=== PATIENT | female | born 1955 ===

== ENCOUNTER 2017-01-21 09:24 | Emergency (ER) | payer OTHER ==
[2017-01-21 09:31] VITALS: TEMP 97.9; BMI 27.7
--- NOTE | 2017-01-21 10:13 | ED PDOC ---
Lower Extremity Pain/Injury Time Seen by Provider: 01/21/17 09:43 Chief Complaint (Nursing): Lower Extremity Problem/Injury Chief Complaint (Provider): right knee pain History Per: Patient History/Exam Limitations: no limitations Onset/Duration Of Symptoms: Days Current Symptoms Are (Timing): Still Present Severity: Moderate Additional History Per: Patient Additional Complaint(s): The pt is a 61yo female with no pertinent PMHx, presents to the ED for evaluation of right knee pain present for the past week. 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 She denies any recent injuries or trauma to her knee. Pt reports taking Ibuprofen for the pain with some relief. She currently offers no additional medical complaints. - Knee Currently Unable To: Bear Weight Alleviating Factor(s): Elevation Past Medical History Reviewed: Historical Data, Nursing Documentation, Vital Signs Vital Signs: Last Vital Signs Temp 97.9 F 01/21/17 09:30 Pulse 60 01/21/17 09:30 Resp BP 118/61 01/21/17 09:30 Pulse Ox 99 01/21/17 09:30 - Medical History PMH: Hypothyroidism - Surgical History Surgical History: No Surg Hx - Family History Family History: States: No Known Family Hx - Living Arrangements Living Arrangements: With Family - Social History Current smoker - smoking cessation education provided: No Alcohol: None Drugs: Denies - Home Medications Home Medications: Ambulatory Orders Medication Instructions Recorded traMADol [Ultram] 50 - 100 mg PO Q6H #20 tab 06/30/14 Diclofenac Sodium [Voltaren] 1 gm TP TID #100 gel..gram. 01/21/17 Naproxen 500 mg PO BID #20 tab 01/21/17 - Allergies Allergies/Adverse Reactions: Allergies Allergy/AdvReac Type Severity Reaction Status Date / Time No Known Allergies Allergy Verified 01/21/17 09:50 Review of Systems ROS Statement: Except As Marked, All Systems Reviewed And Found Negative Musculoskeletal: Positive for: Leg Pain (right knee pain) Physical Exam - Reviewed Nursing Documentation Reviewed: Yes Vital Signs Reviewed: Yes - Physical Exam Appears: Positive for: Well, Non-toxic, No Acute Distress Head Exam: Positive for: ATRAUMATIC, NORMAL INSPECTION, NORMOCEPHALIC Respiratory: Negative for: Respiratory Distress Extremity: Positive for: Normal ROM, Tenderness (mild tenderness to right knee area). Negative for: Deformity, Swelling Neurologic/Psych: Positive for: Alert, Oriented - ECG O2 Sat by Pulse Oximetry: 99 (RA) Pulse Ox Interpretation: Normal - Other Rad Xray knee X-Ray: Interpreted by Me, Viewed By Me X-Ray Interpretation: no acute findings Medical Decision Making Medical Decision Making: Time: 1010 Impression: Right knee pain Differential: Osteoarthritis; less likely DVT Plan: * US Doppler right leg * Toradol 30 mg IM * Reassess Time: 1135 US Doppler IMPRESSION: No evidence of deep venous thrombosis in the right lower extremity. Scribe Attestation: Documented by Patricia Zambrano acting as a scribe for Veronica Hector MD. Provider Attestation: All medical record entries made by the Scribe were at my direction and personally dictated by me. I have reviewed the chart and agree that the record accurately reflects my personal performance of the history, physical exam, medical decision making, and the department course for this patient. I have also personally directed, reviewed, and agree with the discharge instructions and disposition. Disposition - Clinical Impression Clinical Impression: Knee pain, right - Patient ED Disposition Is Patient to be Admitted: No Doctor Will See Patient In The: Office Counseled Patient/Family Regarding: Studies Performed, Diagnosis, Need For Followup - Disposition Referrals: Oskar Maurer III, MD [Staff Provider] - Disposition: Routine/Home Disposition Time: 12:33 Condition: GOOD Additional Instructions: Take medications as instructed. Rest more often. Wear knee brace during the day. Follow up with your PCP in 2-3 days. Prescriptions: Diclofenac Sodium [Voltaren] 1 gm TP TID #100 gel..gram. Naproxen 500 mg PO BID #20 tab Instructions: Arthritis (ED)
--- NOTE | 2017-01-21 11:37 | US ---
PROCEDURE: Right lower extremity venous duplex Doppler. HISTORY: right lower leg pain COMPARISON: None available. TECHNIQUE: Common femoral, superficial femoral, popliteal and posterior tibial veins were evaluated. Flow was assessed with color Doppler, compressibility, assessment of phasic flow and augmentation response. FINDINGS: COMMON FEMORAL VEIN: Unremarkable. SUPERFICIAL FEMORAL VEIN: Unremarkable. POPLITEAL VEIN: Unremarkable. POSTERIOR TIBIAL VEIN: Unremarkable. OTHER FINDINGS: None. IMPRESSION: No evidence of deep venous thrombosis in the right lower extremity.
[2017-01-21 12:51] VITALS: BP 120/65; PULSE 70; RESP 16; O2SAT 100
--- NOTE | 2017-01-21 13:16 | RAD ---
PROCEDURE: Right Knee Radiographs. HISTORY: knee pain no trauma COMPARISON: 06/30/2014 FINDINGS: BONES: Normal. No fracture. JOINTS: Mild lateral compartment osteoarthritis. JOINT EFFUSION: None. OTHER FINDINGS: Mild chondrocalcinosis noted. IMPRESSION: No apparent fracture. Mild arthritis. Chondrocalcinosis.
== END 2017-01-21 12:50 | disposition home or self-care (01) ==
LOC: H.ER 09:24
DX: M25.561 Pain in right knee (principal); M79.661 Pain in right lower leg; E03.9 Hypothyroidism, unspecified